=== PATIENT | male | born 2000 | race Caucasian/White ===

== ENCOUNTER → 2024-04-10 15:33 | Emergency (ER) | payer BC, SELFPAY ==
[2024-04-10 15:48] VITALS: BP 131/85
[2024-04-10 16:24] LABS: Amphetamines Negative (Negative); Barbiturates Negative (Negative); Benzodiazepines Negative (Negative); Buprenorphine Negative (Negative); Cocaine Negative (Negative); Methadone Negative (Negative); Methamphetamines Negative (Negative); Opiates Negative (Negative); Phencyclidine Negative (Negative)
[2024-04-10 16:25] LABS: Marijuana Positive (Negative); Tricyclic Antidepressants Negative (Negative)
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
[2024-04-10 23:00] VITALS: BP 122/80
[2024-04-11] MEDS: ATIVAN 1 MG PO (00:36)
== END ==
LOC: EMR 15:33
PROVIDERS: Emergency Medicine; EMERGENCY PHYSICIAN Student in an Organized Health Care Education/Training Program
DX: F29 Unspecified psychosis not due to a substance or known physiological condition (principal); Z65.3 Problems related to other legal circumstances; F12.90 Cannabis use, unspecified, uncomplicated; F10.90 Alcohol use, unspecified, uncomplicated; Z87.820 Personal history of traumatic brain injury
CPT/HCPCS: 99285; 80306